=== PATIENT | female | born 1985 | race Caucasian/White ===

== ENCOUNTER 2024-11-09 09:51 | Outpatient (REF) | payer OTHER, SELFPAY ==
[2024-11-09 14:19] LABS: Hematocrit 36.5 % (37.0-47.0); Hemoglobin 12.5 g/dl (12.0-16.0); Mean Corpuscular HGB Conc 34.2 g/dl (31.0-35.0); Mean Corpuscular Hemoglobin 30.9 pg (27.0-33.0); Mean Corpuscular Volume 90.1 fL (80.0-98.0); NRBC Abs Auto 0.000 X10*3/uL (0.0-0.012); NRBC Pct Auto 0.0 /100WBC (0.0-0.2); Platelet Count 265 X10*3/uL (160-400); Red Blood Count 4.05 X10*6/uL (4.20-5.50); White Blood Count 6.2 X10*3/uL (4.8-10.8)
[2024-11-09 14:34] LABS: Appearance Urine Clear; Glucose Urine UA Negative (Negative); PH 6.5 (5.0-9.0); Specific Gravity - Urine 1.010 (1.005-1.025)
[2024-11-09 14:34] LABS: Hemoglobin A1C 101.5976 umol/L; Total Hemoglobin (HGBA1C) 3278.1361 umol/L
[2024-11-09 14:41] LABS: Alanine Aminotransferase 13 U/L (0-31); Albumin Level 4.5 g/dL (3.5-5.0); Alkaline Phosphatase 39 U/L (39-117); Anion Gap 14 (12-20); Aspartate Amino Transferase 19 U/L (5-31); Blood Urea Nitrogen 10 mg/dL (9-16); Calcium 9.2 mg/dL (8.4-10.2); Carbon Dioxide 26 mmol/L (22-29); Chloride 104 mmol/L (96-108); Cholesterol 184 mg/dL (<200); Estimated Glomerular Filt Rate > 60; HDL Cholesterol 52 mg/dL (>40); Potassium 3.8 mmol/L (3.3-5.1); Sodium 140 mmol/L (135-145); Total Protein 7.1 g/dL (6.5-8.0); Triglycerides 84 mg/dL (<150)
[2024-11-09 15:15] LABS: Folate 11.9 ng/mL (> or = 4.0); Vitamin B12 291 pg/mL (200-900)
== END 2024-11-09 09:52 | disposition home or self-care (01) ==
LOC: HO.WFDLDS 09:51
PROVIDERS: PCP Nurse Practitioner Family; Visit Provider Nurse Practitioner Family
DX: Z00.00 Encounter for general adult medical examination without abnormal findings (principal); Z13.6 Encounter for screening for cardiovascular disorders; R30.0 Dysuria; F41.1 Generalized anxiety disorder; F33.0 Major depressive disorder, recurrent, mild; E55.9 Vitamin D deficiency, unspecified; K21.9 Gastro-esophageal reflux disease without esophagitis; K59.01 Slow transit constipation; R51.9 Headache, unspecified; G89.29 Other chronic pain; Z86.2 Personal history of diseases of the blood and blood-forming organs and certain disorders involving the immune mechanism; Z92.89 Personal history of other medical treatment; R10.2 Pelvic and perineal pain; Z84.89 Family history of other specified conditions; Z80.8 Family history of malignant neoplasm of other organs or systems; Z76.89 Persons encountering health services in other specified circumstances
CPT/HCPCS: 36415; 80053; 80061; 81003; 82043; 82306; 82570; 82607; 82746; 83036; 84443; 85027; 96127; 99202

== ENCOUNTER 2024-11-09 09:51 | Outpatient (AMB) | payer OTHER, SELFPAY ==
--- NOTE | 2024-11-09 10:00 | A.OFFPC_ITS ---
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: No Allergies amoxicillin Allergy (Severe, Verified 11/09/24 10:59) Hives clindamycin Allergy (Severe, Verified 11/09/24 10:59) Hives sulfamethoxazole (From Bactrim) Allergy (Severe, Verified 11/09/24 10:59) Hives trimethoprim (From Bactrim) Allergy (Severe, Verified 11/09/24 10:59) Hives Medication List - Last Reconciled 11/09/24 by Yue Gupta, [facility]- citalopram 40 mg PO DAILY levonorgestrel-ethinyl estrad 0.1-20 mg-mcg (Vienva) 1 tab PO DAILY Tobacco use date assessed: 11/09/24 Dental Screening Dental Screen Date: 11/09/24 Did you have a dental visit in the last 12 months?: Yes Did you have a dental problem in the last 6 months where you did not have access to dental care?: No Was dental information given to patient?: Patient has dentist HPI HPI Comments History of Present Illness Details 39 y/o f with MADHU, MDD, hx of CTS, heada ches, insomnia , GERD, constipation, fhx brain tumor and skin ca, Vit D def, anemia, s/p laparoscopy 2010 Fhx: Brother with brain tumor alive age 32 ; Dad and Mom and HLD and HTN, Skin ca in Mom Social: , 2 children Health Maintenance: Pap 2022 Tdap 2024 Mammo - first one ordered today Health Maintenance: Optho - glasses 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 Likely cause is IUD perf into uterus Frequent urination; chronic, controlled w/ OCP. Offered and declined Uro. GERD: diet controlled Constipation: caused by celexa; manageable at this time Headache: not currently bothersome Insomnia no longer an issue CTS bilat: sx cont; did OT. Cont these exercises at home. fhx skin ca in Mom and Grandma (maternal) refer for Skin screen at [facility] Derm Fhx brain tumor in bro - shes had neg. brain imaging in the past Ok for baseline labs today. Review of Systems - Psychiatric: Reports anxiety, denies c urrent depression. - Neurological: Denies current headaches or insomnia. - Musculoskeletal: Reports history of ca rpal tunnel syndrome. - Gastrointestinal: Reports GERD control led by dietary measures; reports c onstipation. - Genitourinary: Reports urinary urgency and frequency post-. - Gynecological: Reports possible endome triosis, managed with contraception. - Dermatological: Family history of azeb noma. - Hematological: History of anemia durin g . Physical Exam General: Well developed, well nourished, in no acute distress. Appears stated age. Head: Normocephalic, atraumatic. Eyes: Pupils are equal, round and reactive to light and accommodation. Conjunctivae are clear. Vision grossly normal. Ears: TMs clear AU, EACS WNL Nose: Patent, without discharge. Neck: Supple, no adenopathy or thyromegaly. Breast: Edu on SBE Lungs: Clear to auscultation bilaterally. No rales, rhonchi or wheeze noted. Good air flow in all isaac. Heart: Regular rate and rhythm. No murmurs, click, rubs or gallops are noted. Abdomen: Bowel sounds present in all quadrants. The abdomen is soft, nontender, with no masses or organomegaly noted. No hernias are noted. : Deferred. 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 Extremities: No clubbing, cyanosis nor edema is noted. Neurologic: Gait and station normal. Cranial Nerves 2-12 intact. Motor strength grossly symmetrical and intact. No sensory loss. Balance normal. Skin: No rashes, ulcers, or lesions noted. Turgor is good. Skin color is good. Hair and nails are without abnormalities. Psych: Normal eye contact, affect and mood appropriate, and normal interactions. Patient is alert and appropriate to context. Results - Labs: Ordered & pending Discussion Notes During the visit, the patient and I discussed her history of anxiety exacerbated by her recent discontinuation of citalopram. I recommended restarting Citalopram 40 mg, beginning with half the dose at 20 mg daily. If ineffective, the patient can resume the full dose. Pelvic pain and the strategy of using control were reviewed, with the potential benefit discussed for menstrual regulation. No urologist consult was done for post- urinary symptoms, which currently remain manageable. I addressed health screenings such as mammogram, skin screening, and referral to BENEFITS COUNSELOR for women's health maintenance. Follow-up instructions included 3-month reassessment for the citalopram dosage and routine annual physicals. All medication interactions and side effects for citalopram were explained, including the potential for transient gastrointestinal upset or headaches. Patient was given time to ask questions. All questions were answered to their satisfaction. Assessment and Plan 1. Anxiety Disorder - Restart Citalopram 40 mg as 20 mg init ially. 2. Pelvic Pain - Continue control. 3. Carpal Tunnel Syndrome bilat - Continue physical therapy exercises. 4. Gastroesophageal Reflux Disease (GERD ) - Diet management continues. 5. Constipation - Manage with dietary changes. 6. Health Maintenance - Schedule mammogram and skin screening. - Complete lab work for vitamin D and th yroid. Patient Instructions - Begin taking Citalopram 20 mg daily, a nd consult if symptoms persist. - Maintain current diet to control GERD and constipation. - Expect a phone call to schedule mammog patricia and dermatology visits. - Follow-up in 12 weeks Celexa restart for MADHU, sooner PRN Consent Patient was informed and verbally consented to the use of an ambient scribe for clinic note documentation during this visit. An additional 30 minutes was spent addressing the problem(s) noted at todays visit. This includes time spent before the visit reviewing the chart, time spent during the visit, and time spent after the visit on documentation reviewing laboratory results, diagnostic imaging, medications, performing a medically necessary evaluation, counseling on diagnoses, care coordination, ordering appropriate tests, ordering appropriate medications, review of tests performed by other providers, reporting test results with the patient, communication with other healthcare providers. [facility] Medical History (Updated 11/09/24 @ 11:12 by Yue Gupta, MIGUEL-) Anxiety and depression Carpal tunnel syndrome Endometriosis Frequent urination Headache Pelvic pain Surgical History S/P laparoscopic procedure (~2010) Family History (Updated 11/09/24 @ 10:38 by Maria Teresa Zacarias MA) Maternal Aunt No problems noted. 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 1. Little interest or pleasure in doing things: several days 2. Feeling down, depressed, or hopeless: several days 3. Trouble falling or staying asleep, or sleeping too much: not at all 4. Feeling tired or having little energy: not at all 5. Poor appetite or overeating: not at all 6. Feeling bad about yourself - or that you are a failure or have let yourself or your family down: several days 7. Trouble concentrating on things, such as reading the newspaper or watching television: not at all 8. Moving or speaking so slowly that other people could have noticed. Or the opposite - being so fidgety or restless that you have been moving around a lot more than usual: not at all 9. Thoughts that you would be better off or of hurting yourself in some way: not at all Total score: 3 Depression Screening Interpretation: Negative Depression Screening Done: Yes 68308 - PHQ-9 Billing: Yes Source: Developed by Drs. Karl Pierson, Sarah Beth Johnson, Maykel Berumen and colleagues, with an educational yobany from [employer]. Thrive Questionnaire Date Thrive assessed: 11/09/24 I am a: Patient What is your living situation today?: I have a steady place to live Within the past 12 months, did the food you bought not last and you didn't have the money to get more?: Never true Within the past 12 months, did you worry whether your food would run out before you got money to buy more?: Never true Do you have trouble paying for medicines?: I choose not to answer this question Do you have trouble getting transportation to medical appointments?: No Do you have trouble paying your heating and electricity bill?: No Do you have trouble taking care of your child, family member or friend?: No Do you have trouble with day-to-day activities such as bathing, preparing meals, shopping, managing finances, etc.?: No Are you currently unemployed and looking for a job?: No Are you interested in more education?: No Please select the resources that you would like help with: None Currently or been in a relationship where the following occur: No concerns reported THRIVE Score: 0 AUDIT C Alcohol Use Questionnaire (AUDIT-C) 1. How often do you have a drink containing alcohol?: Monthly or less 2. How many drinks containing alcohol do you have on a typical day when you are drinking?: 3 or 4 3. How often do you have six or more drinks on one occasion?: Never Total Score: 2 Score Reviewed/Action Taken: Yes MADHU-7 AMB Questionnaire MADHU-7 Date MADHU - 7 assessed: 11/09/24 Feeling nervous, anxious, or on edge: 3 = Nearly every day Not being able to stop or control worryin = More than half the days Worrying too much about different things: 2 = More than half the days Trouble relaxin = Not at all Being so restless that it is hard to sit still: 0 = Not at all Becoming easily annoyed or irritable: 0 = Not at all Feeling afraid as if something awful might happen: 0 = Not at all Total MADHU-7 score (0-4 normal; 5-9 mild; 10-14 moderate; 15-21 severe): 7 Source: Developed by Drs. Karl Pierson, Sarah Beth Johnson, Maykel Berumen and colleagues, with an educational yobany from [employer]. MADHU-7 Assessment Billing MADHU-7 Assessment Tool: MADHU-7 Assessment 43109 Physical exam (Primary Care) Vital Signs: Last Vital Signs Temp 97.5 F 11/09/24 10:32 Pulse 77 11/09/24 10:32 Resp 12 11/09/24 10:32 BP 118/66 11/09/24 10:32 Pulse Ox 99 11/09/24 10:32 Oxygen Delivery Method Room Air 11/09/24 10:32 BMI result Body Mass Index 22.5 Tobacco/Smoking Status: Tobacco use Status Tobacco use date assessed 11/09/24 11/09/24 10:02 Patient Tobacco Use Status Never used Tobacco 11/09/24 10:02 e-Cigarette/Vaping Use Never Used 11/09/24 10:02 PHQ-9: PHQ-9 Score PHQ-9: Total score 3 11/09/24 10:02 Depression Screening Interpretation: Negative Thrive Assessment: Date of Thrive Assessment Date Thrive assessed 11/09/24 11/09/24 10:02 Currently or been in a relationship where the following occur: No concerns reported Coding Level of Care Code New Pt Level 4 (89405) New Pt Prev Care 40-64y(90623) Diagnoses Encounter to establish care with new provider Z76.89 MADHU (generalized anxiety disorder) F41.1 Mild episode of recurrent major depressive disorder F33.0 Major depression episode severity: mild Vitamin D deficiency E55.9 Gastroesophageal reflux disease without esophagitis K21.9 Esophagitis presence: without esophagitis Slow transit constipation K59.01 Constipation type: slow transit constipation History of anemia Z86.2 Chronic nonintractable headache, unspecified headache type R51.9; G89.29 Headache type: unspecified Intractability: not intractable History of Papanicolaou smear of cervix Z92.89 Pelvic pain R10.2 Oral contraceptive use Z30.41 Family history of brain tumor Z84.89 Family history of skin cancer Z80.8 Skin cancer screening Z12.83 Laboratory exam ordered as part of routine general medical examination Z00.00 Encounter for general adult medical examination without abnormal findings Z00.00 Additional Codes MADHU-7 Assessment Billing - MADHU-7 Assessment Tool: MADHU-7 Assessment 51316 ([id number]) PHQ-9 - 62828 - PHQ-9 Billing: Yes ([id number]) Assessment & Plan Assessment & Plan (1) Encounter to establish care with new provider: Code(s): Z76.89 - Persons encountering health services in other specified circumstances (2) MADHU (generalized anxiety disorder): Code(s): F41.1 - Generalized anxiety disorder Category: Medical (3) MDD (major depressive disorder), recurrent episode: Code(s): F33.9 - Major depressive disorder, recurrent, unspecified Category: Medical Qualifiers: Major depression episode severity: mild Qualified Code(s): F33.0 - Major depressive disorder, recurrent, mild (4) Vitamin D deficiency: Code(s): E55.9 - Vitamin D deficiency, unspecified Category: Medical (5) GERD (gastroesophageal reflux disease): Code(s): K21.9 - Gastro-esophageal reflux disease without esophagitis Category: Medical Qualifiers: Esophagitis presence: without esophagitis Qualified Code(s): K21.9 - Gastro-esophageal reflux disease without esophagitis (6) Constipation: Code(s): K59.00 - Constipation, unspecified Category: Medical Qualifiers: Constipation type: slow transit constipation Qualified Code(s): K59.01 - Slow transit constipation (7) History of anemia: Code(s): Z86.2 - Personal history of diseases of the blood and blood-forming organs and certain disorders involving the immune mechanism Category: Medical (8) Chronic headaches: Comment: Imaging of head done in the past; need records; told nothing to worry about Code(s): R51.9 - Headache, unspecified; G89.29 - Other chronic pain Category: Medical Qualifiers: Headache type: unspecified Intractability: not intractable Qualified Code(s): R51.9 - Headache, unspecified; G89.29 - Other chronic pain (9) History of Papanicolaou smear of cervix: Onset Date: ~2022 Code(s): Z92.89 - Personal history of other medical treatment Category: Medical (10) Pelvic pain: Code(s): R10.2 - Pelvic and perineal pain Category: Medical (11) Oral contraceptive use: Code(s): Z30.41 - Encounter for surveillance of contraceptive pills Category: Social Hx (12) Family history of brain tumor: Comment: Brother, dx in childhood; he is still alive; Code(s): Z84.89 - Family history of other specified conditions Category: Medical (13) Family history of skin cancer: Comment: MGM w/ melanoma Mom w/ basal cell Code(s): Z80.8 - Family history of malignant neoplasm of other organs or systems Category: Medical (14) Skin cancer screening: Code(s): Z12.83 - Encounter for screening for malignant neoplasm of skin Category: Medical (15) Laboratory exam ordered as part of routine general medical examination: Code(s): Z00.00 - Encounter for general adult medical examination without abnormal findings Category: Medical (16) Encounter for general adult medical examination without abnormal findings: Onset Date: ~11/09/24 Code(s): Z00.00 - Encounter for general adult medical examination without abnormal findings Category: Medical Plan . Orders: Orders MM tomosynthesis screening BI Today Z12.31 - Encounter for screening mammogram for malignant neoplasm of breast Complete Blood Count no Diff Today Z00.00 - Encounter for general adult medical examination without abnormal findings Hemoglobin A1c Today Z00.00 - Encounter for general adult medical examination without abnormal findings Lipid Panel Today Z00.00 - Encounter for general adult medical examination without abnormal findings UA CC w/rflx Micro + Cult Today R30.0 - Dysuria, Z00.00 - Encounter for general adult medical examination without abnormal findings Comprehensive Met. Panel Today Z00.00 - Encounter for general adult medical examination without abnormal findings Microalbumin, Random (w Creat) Today Z00.00 - Encounter for general adult medical examination without abnormal findings TSH reflex Free T4 Today Z00.00 - Encounter for general adult medical examination without abnormal findings Vitamin B12 and Folate Today Z00.00 - Encounter for general adult medical examination without abnormal findings Vitamin D 25-OH Total Today Z00.00 - Encounter for general adult medical examination without abnormal findings Referrals BENEFITS COUNSELOR Referral R10.2 - Pelvic and perineal pain, Z12.4 - Encounter for screening for malignant neoplasm of cervix, Z30.41 - Encounter for surveillance of contraceptive pills, Z92.89 - Personal history of other medical treatment Dermatology Referral Z12.83 - Encounter for screening for malignant neoplasm of skin, Z80.8 - Family history of malignant neoplasm of other organs or systems Medications: New citalopram 40 mg PO DAILY 90 tabs 2RF Patient Instructions: Walk-In Care (Urgent Care): We Make it Easy Walk-in for urgent medical issues such as: ? Seasonal Allergies ? Insect Bites ? Cough ? Diarrhea ? Acute Asthma Attacks ? Back, Knee or Joint Pain ? Ear Infection ? Fever without a Rash ? Headaches ? Nausea ? University Eye, Rash or Skin Irritation ? Sore Throat ? Sports Physicals ? Vomiting Most insurances are accepted. Patients do not need to be part of the [facility] to seek care at the walk-in clinic. Locations [address] [place] [address] ? [phone] [facility] Walk-In Care in [place] provides services to ages 18 and over. Open Thursday-Thursday: 8 a.m. to 5 p.m. and Thursday: 9 a.m. to 3 p.m.* *Hours may vary due to staffing availability. To confirm Walk-In Care hours in [place], please call [phone]. [address] [place] [address] ? [phone] [facility] Walk-In Care in [place] provides services to ages 12 and over. Open Thursday-Thursday: 8 a.m. to 5 p.m. Hours may vary due to staffing availability. To confirm Walk-In Care hours in [place], please call [phone]. LABORATORY SERVICES: [facility] ? Primary Location [address] [place] [address] Thursday through Thursday 6:00 AM ? 5:00 PM Thursday 7:00 AM ? 11:00 AM* [phone] The [facility] is centrally located near the front entrance of the [facility] for easy outpatient access. Convenient parking is provided for outpatients. *Hours may vary due to staffing availability. To confirm Laboratory hours for any location, please call [phone]. Offsite Location For your convenience, we offer offsite laboratory draw stations at the following locations: [address] [place] [address] ? [facility] [address], [address] Thursday through Thursday 7:30 AM ? 1:00 PM* [phone] *Hours may vary due to staffing availability. To confirm Laboratory hours for any location, please call [phone]. [place] ? [address] Thursday through Thursday 6:00 AM ? 3:30 PM* Thursday 6:30 AM ? 3 PM* [phone] *Hours may vary due to staffing availability. To confirm Laboratory hours for any location, please call [phone]. [address] [facility] Thursday through Thursday 7:30 AM ? 4:00 PM* [phone] *Hours may vary due to staffing availability. To confirm Laboratory hours for any location, please call [phone]. [address] [facility] Thursday through 9:00 AM ? 4:00 PM* *Hours may vary due to staffing availability. To confirm Laboratory hours for any location, please call [phone]. Appointments are not necessary. Walk-ins are welcome. Like all the departments throughout the [facility], our Lab undergoes frequent reviews to ensure the quality and accuracy of test results, and our staff takes special pride in its status as a nationally accredited facility. Patient Portal: ONE PATIENT. ONE RECORD. BETTER CARE. [facility] has a fully integrated, cutting- edge mobile electronic health information system that has revolutionized the way we care for our patients and manage our organization. This system improves communication and coordination enabling us to provide safe, higher-quality care, and an overall positive experience for staff and patients. Our first priority, as always, is to deliver the highest quality care possible. The system is running in the background supporting that priority. This portal is for all [facility] and [facility] services and practices. If you are experiencing any technical difficulties with enrolling or logging into the Patient Portal please complete the [facility] Patient Portal Technical Support Form. [facility] and [facility] now offers a new secure on-line interactive tool for patients to review their health information ? ?Patient Portal. This interactive web portal will enable patients and their families to take an active role in their care by providing easy, secure access to their health information via the internet. The Patient Portal provides patients with instant access to their health information, including laboratory results, medications, allergies, demographic information, visit history, and more. In addition to managing their own care, parents and health care proxies with authorized consent will appreciate the ability to access the records of those individuals for whom they provide care. Please note: if you wish to gain access (Proxy) to another patient?s portal, you will be required to come to the Medical Records Department in person at [facility]. Both the patient giving proxy access and the proxy will need to provide photo identification and complete the appropriate authorization. The Patient Portal also allows track their appointments online. The [facility] Patient Portal also saves patients time by allowing them to submit updates to their demographic and contact information prior to their visits. Portal email notifications will also alert patients to any new activity on their portal, such as test results and new appointments. In order to initially enroll in the [facility] Patient Portal, you will need to enter some required information including the following: * your [facility] Medical Record number * your personal home email address * name * date of Please note: In order to enroll in the [facility] Patient Portal, we need to have your email address on file in your electronic medical record. ?The email address needs to be specific for one person (yourself) in order for your Portal enrollment to be successful. ?You can update your email address in person with our Registration staff when you are registering for a hospital visit. ?Otherwise, you will need to come to the Health Information Management (Medical Records) Department at [facility]. ?We are open from Thursday ? Thursday from 7:30 a.m. ? 4:30 p.m. ?You will be required to present a photo id. Once you have successfully enrolled in the Patient Portal, you will receive a one-time user id and password for the Portal, sent to your email address. ?This will allow you to log into the Patient Portal within 99 hrs and reset your own logon id and password, and define personal security questions. ?Once your permanent login and password have been set, you can log into the [facility] Patient Portal at any time via the blue button above or from the Portal Logon button on any page of the [facility] website. [facility] and [facility] encourage all of our patients to enroll in Patient Portal as it presents a valuable opportunity for patients and their families to actively participate in their care and stay healthy Welcome to [facility]. ?We look forward to working with you. Health screenings for women You should visit your health care provider from time to time, even if you are healthy. The purpose of these visits is to: Screen for medical issues Assess your risk for future medical problems Encourage a healthy lifestyle Update vaccinations and other preventive care services Help you get to know your provider in case of an illness Information Even if you feel fine, you should still see your provider for regular checkups. These visits can help you avoid problems in the future. For example, the only way to find out if you have high blood pressure is to have it checked regularly. High blood sugar and high cholesterol levels also may not have any symptoms in the early stages. A simple blood test can check for these conditions. There are specific times when you should see your provider or receive specific health screenings. The [place] Preventive Services Task Force publishes a list of recommended screenings. Below are screening guidelines for women ages 18 to 39. BLOOD PRESSURE SCREENING Your blood pressure should be checked at least once every 3 to 5 years if: Your blood pressure is in the normal range (top number less than 120 mm Hg and bottom number less than 80 mm Hg) You don't have risk factors for high blood pressure Ask your provider if you need your blood pressure checked more often if: The top number is 120 to 129 mm Hg or the bottom number is 70 to 79 mm Hg You have diabetes, heart disease, kidney problems, are overweight, or have certain other health conditions You have a first-degree relative with high blood pressure You are Black You had high blood pressure during a If the top number is 130 mm Hg or greater or the bottom number is 80 mm Hg or greater, this is considered stage 1 hypertension. Schedule an appointment with your provider to learn how you can reduce your blood pressure. Watch for blood pressure screenings in your area. Ask your provider if you can stop in to have your blood pressure checked. BREAST CANCER SCREENING Experts do not agree about the benefits of breast self-exams in finding breast cancer or saving lives. Talk to your provider about what is best for you. A screening mammogram is not recommended for most women under age 40. Your provider may discuss and recommend mammograms, MRI scans, or ultrasounds if you have an increased risk for breast cancer, such as: A mother or sister who had breast cancer at a young age (most often starting screening earlier than the age the close relative was diagnosed) You carry a high-risk genetic marker CERVICAL CANCER SCREENING Cervical cancer screening should start at age 21 years unless your provider advises otherwise. After the first test: Women ages 21 through 29 should have a Pap test every 3 years. Exoprts do not agree on whether HPV testing is recommended for this age group. Women ages 30 through 65 should be screened with either a Pap test every 3 years or the HPV test every 5 years or both tests every 5 years (called cotesting ). Women who have been treated for precancer (cervical dysplasia) should continue to have Pap tests for 20 years after treatment or until age 65, whichever is longer. If you have had your uterus and cervix removed (total hysterectomy), and you have not been diagnosed with cervical cancer or precancer (high grade cervical neoplasia), you do not need cervical cancer screening. CHOLESTEROL SCREENING Cholesterol screening should begin at: Age 45 for women with no known risk factors for coronary heart disease Age 20 for women with known risk factors for coronary heart disease Repeat cholesterol screening should take place: Every 5 years for women with normal cholesterol levels More often if changes occur in lifestyle (including weight gain and diet) More often if you have diabetes, heart disease, kidney problems, or certain other conditions DIABETES SCREENING You should be screened for diabetes starting at age 35 and then repeated every 3 years if you have no risk factors for diabetes. Screening may need to start earlier and be repeated more often if you have other risk factors for diabetes, such as: You have a first degree relative with diabetes. You are overweight or have obesity. You have high blood pressure, prediabetes, or a history of heart disease. Screening for diabetes should be done if you are planning to become and you are overweight and have other risk factors such as high blood pressure. DENTAL EXAM Go to the dentist once or twice every year for an exam and cleaning. Your dentist will evaluate if you need more frequent visits. EYE EXAM Have an eye exam every 5 to 10 years before age 40. If you have vision problems, have an eye exam every 2 years or more often if recommended by your provider. You should have an eye exam that includes an examination of your retina (back of your eye) at least every year if you have diabetes. IMMUNIZATIONS Commonly needed vaccines include: Flu shot: get one every year. COVID-19 vaccine: ask your provider what is best for you. Tetanus-diphtheria and acellular pertussis (Tdap) vaccine: have one at or after age 19 as one of your tetanus-diphtheria vaccines if you did not receive it as an adolescent. Tetanus-diphtheria: have a booster (or Tdap) every 10 years. Varicella vaccine: receive 2 doses if you never had chickenpox or the varicella vaccine. Hepatitis B vaccine: receive 2, 3, or 4 doses, depending on your exact circumstances. Measles, mumps, and rubella (MMR) vaccine: receive 1 to 2 doses if you are not already immune to MMR. Your provider can tell you if you are immune. Ask your provider about the human papillomavirus (HPV) vaccine if: You have not received the HPV vaccine in the past You have not completed the full vaccine series (you should catch up on this shot) Ask your provider if you should receive other immunizations if you have certain health problems that increase your risk for some diseases such as pneumonia. INFECTIOUS DISEASE SCREENING Women who are sexually active should be screened for chlamydia and gonorrhea up until age 25. Women 25 years and older should be screened for chlamydia and gonorrhea if at high risk. Screening for hepatitis C: All adults ages 18 to 79 should get a one-time test for hepatitis C. people should be screened at every . Screening for human immunodeficiency virus (HIV): All people ages 15 to 65 should get a one-time test for HIV. Depending on your lifestyle and medical history, you may also need to be screened for infections such as syphilis and HIV, as well as other infections. PHYSICAL EXAM All adults should visit their provider from time to time, even if they are healthy. The purpose of these visits is to: Screen for disease Assess your risk of future medical problems Encourage a healthy lifestyle Update your vaccinations and other preventive care services Maintain a relationship with a provider in case of an illness Your height, weight, and BMI should be checked at every exam. During your exam, your provider may ask you about: Depression and anxiety Diet and exercise Alcohol and tobacco use Safety issues, such as using seat belts, smoke detectors, and intimate partner violence Your medicines and risk for interactions SKIN SELF-EXAM Your provider may check your skin for signs of skin cancer, especially if you're at high risk, such as if you: Have had skin cancer before Have close relatives with skin cancer Have a weakened immune system OTHER SCREENING Talk with your provider about colon cancer screening if you have a strong family history of colon cancer or polyps, or if you have had inflammatory bowel disease or polyps yourself. Routine bone density screening of women under 40 is not recommended.
[2024-11-09 10:32] VITALS: BP 118/66; PULSE 77; RESP 12; TEMP 36.4; O2SAT 99; BMI 22.5
== END 2024-11-09 11:08 | disposition home or self-care (01) ==
LOC: HO.HMCFM 09:52
PROVIDERS: PCP Nurse Practitioner Family; Visit Provider Nurse Practitioner Family
DX: Z00.00 Encounter for general adult medical examination without abnormal findings (principal); K21.9 Gastro-esophageal reflux disease without esophagitis; E55.9 Vitamin D deficiency, unspecified; Z76.89 Persons encountering health services in other specified circumstances; F41.1 Generalized anxiety disorder; F33.0 Major depressive disorder, recurrent, mild; K59.01 Slow transit constipation; Z86.2 Personal history of diseases of the blood and blood-forming organs and certain disorders involving the immune mechanism; R51.9 Headache, unspecified; G89.29 Other chronic pain; Z92.89 Personal history of other medical treatment; R10.2 Pelvic and perineal pain

== ENCOUNTER 2024-12-24 10:16 | Outpatient (REF) | payer OTHER, SELFPAY | END 2024-12-24 10:17 | disposition home or self-care (01) | LOC: HO.MAMMO 10:16 | PROVIDERS: PCP Nurse Practitioner Family; Visit Provider Nurse Practitioner Family | DX: Z12.31 Encounter for screening mammogram for malignant neoplasm of breast (principal) | CPT/HCPCS: 77063; 77067 ==

== ENCOUNTER → 2024-12-24 10:30 | Outpatient (BNV) | payer OTHER, SELFPAY | PROVIDERS: PCP Nurse Practitioner Family; Visit Provider Internal Medicine | DX: Z12.31 Encounter for screening mammogram for malignant neoplasm of breast (principal) | CPT/HCPCS: 77063; 77067 ==

== ENCOUNTER 2025-01-25 08:17 | Outpatient (REF) | payer OTHER, SELFPAY ==
--- NOTE | ~2025-01-25 | MM_ITS ---
EXAMINATION: MM DIAGNOSTIC DIGITAL BREAST TOMOSYNTHESIS, LEFT CLINICAL INFORMATION: Call back from screening for asymmetry in the superior left breast anterior depth on MLO view. COMPARISON: Mammography: Prior on PACS. TECHNIQUE: Digital breast tomosynthesis is performed in both the craniocaudal and mediolateral oblique views along with computer-aided detection (CAD). Synthesized 2D images are generated from the tomosynthesis. FINDINGS: There are scattered areas of fibroglandular density. Previously seen asymmetry in the superior left breast on MLO view anterior to middle depth does not persist on additional imaging projections and likely represented overlapping breast tissue. There are no significant masses, abnormal calcifications, or other abnormalities. MM/MM tomosynthesis added views L IMPRESSION: There are no significant changes from prior study. ASSESSMENT: BI-RADS Category 1: Negative RECOMMENDATION: 1 year F/U Results were provided to the patient at time of visit by the technologist. This patient's information was entered into a reminder system with a target due date for their next mammogram. Electronically signed by: Carlota Gonzales DO 01/25/2025 08:42 AM EDT
== END 2025-01-25 08:18 | disposition home or self-care (01) ==
LOC: HO.MAMMO 08:17
PROVIDERS: PCP Nurse Practitioner Family; Visit Provider Nurse Practitioner Family
DX: N64.89 Other specified disorders of breast (principal)
CPT/HCPCS: 77061; 77065

== ENCOUNTER → 2025-01-25 08:30 | Outpatient (BNV) | payer OTHER, SELFPAY | PROVIDERS: PCP Nurse Practitioner Family; Visit Provider Internal Medicine | DX: R92.8 Other abnormal and inconclusive findings on diagnostic imaging of breast (principal) | CPT/HCPCS: 77061; 77065 ==

== ENCOUNTER 2025-02-14 08:32 | Outpatient (AMB) | payer OTHER, SELFPAY ==
--- NOTE | 2025-02-14 08:38 | A.OFFPC_ITS ---
Vital Signs 02/14/25 08:41 Height 5 ft Weight 118 lb 4 oz BMI 23.1 BP 118/68 Blood Pressure Location Rt brachial Position Sitting Respiration 12 Pulse 68 Pulse Source Pulse Oximeter Temp 97.5 F Temp Source Oral Pulse Oximetry (%) 98 Oxygen Delivery Method Room Air Intake Visit Reasons: 3 months FU celexa Intake Note: 3 Months follow up on celexa. Development Disability Specialist Required: No Allergies amoxicillin Allergy (Severe, Verified 02/14/25 09:02) Hives clindamycin Allergy (Severe, Verified 02/14/25 09:02) Hives sulfamethoxazole (From Bactrim) Allergy (Severe, Verified 02/14/25 09:02) Hives trimethoprim (From Bactrim) Allergy (Severe, Verified 02/14/25 09:02) Hives Medication List - Last Reconciled 02/14/25 by MIGUEL Figueroa- citalopram 40 mg PO DAILY levonorgestrel-ethinyl estrad 0.1-20 mg-mcg (Vienva) 1 tab PO DAILY Tobacco use date assessed: 02/14/25 Dental Screening Dental Screen Date: 02/14/25 Did you have a dental visit in the last 12 months?: Yes Did you have a dental problem in the last 6 months where you did not have access to dental care?: No Was dental information given to patient?: Patient has dentist HPI HPI Comments History of Present Illness Details 39 y/o f with MADHU, MDD, hx of CTS, heada ches, insomnia , GERD, constip ation, fhx brain tumor and skin ca, Vit D def, anemia, s/p laparoscopy 2010 Fhx: Brother with brain tumor alive age 32 ; Dad and Mom and HLD and HTN, Skin ca in Mom Social: , 2 children Health Maintenance: Pap 2022 Tdap 2024 Mammo 11/2024 incomplete additional imaging needed 12/2024 WNL Flu 02/14/25 Health Maintenance: Optho - glasses 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 Anxiety and Depression: - The patient recently restarted citalop patricia 40 mg for anxiety and depressive symptoms. - She reports her mood has significantly improved since restarting the medication. - Prior to restarting, she rated her sym ptoms as a 7 out of 10, and they are now a 4 out of 10. - She denies any side effects such as st omach ache or headache. - There was a previous interruption in t reatment due to insurance issues. - The patient has previously declined co unseling and continues to do so. Health Maintenance: - A recent mammogram was normal after an initial incomplete study required repeat imaging. - Lab results were sent via the patient portal, and she has no questions about them. - The patient has a skin screening sched uled for later this week. - Would like flu shot today Past Medical History - Anxiety - Depression - Upper respiratory infection, resolved, occurred approximately 1.5 months ago. Review of Systems - Psychiatric: Reports significant impro vement in anxiety and depressive symptoms. - Gastrointestinal: Denies stomach ache. - Neurological: Denies headache. Physical Exam General: Well developed, well nourished, in no acute distress. Appears stated age. Head: Normocephalic, atraumatic. Eyes: Pupils are equal, round and reactive to light and accommodation. Conjunctivae are clear. Lungs: Clear to auscultation bilaterally. No rales, rhonchi or wheeze noted. Good air flow in all isaac. Heart: Regular rate and rhythm. No murmurs, click, rubs or gallops are noted. Psych: Mood and affect appropriate, significantly improved since restarting citalopram. Results - Labs: Recent lab results were reviewed by the patient on the portal; she reports no questions. - Imaging: A recent mammogram was normal after an initial incomplete study required repeat imaging. Medical Decision Making This 39-year-old female presents for a follow-up of anxiety and depression after recently restarting citalopram. She is currently on 40 mg daily and reports a significant improvement in her mood, with a self-rated symptom score reduction from 7/10 to 4/10 since restarting the medication a few weeks ago. She denies any adverse effects. Given the substantial symptomatic improvement of nearly 50% in a short period, the decision was made to continue the current dosage. While there is an option to escalate the dose, it seems prudent to observe if her symptoms will continue to improve on the current regimen. The plan is to maintain citalopram 40 mg daily and re-evaluate in approximately six weeks, with the patient understanding she can contact me via the portal to discuss an earlier dose increase if needed. The patient will also receive an influenza vaccine today. Plan 1. Anxiety And Depression - The patient reports significant improv ement in anxiety and depression symptoms, with a self-rated score decreasing from 7/10 to 4/10 since restarting citalopram 40 mg. - She denies any side effects from the m edication. - Plan is to continue citalopram 40 mg d aily. - The patient has declined counseling. - Follow-up is scheduled for six weeks t o re-evaluate symptoms, with the option to contact via the patient portal sooner if she feels a dose increase is necessary. 2. Health Maintenance - Influenza vaccine will be administered today. - Patient confirmed her recent mammogram results were normal. - [facility] Patient Instructions - Continue taking citalopram 40 mg once daily. - [facility] - [facility] for about six weeks from now. - If you feel your symptoms are getting worse or if you want to discuss increasing your medication sooner, please send a message through the online patient portal. - Keep your scheduled appointment for [facility] skin screening later this week. - Your prescription for citalopram has a 90-day supply, so you do not need a refill today. Consent Patient was informed and verbally consented to the use of an ambient scribe for clinic note documentation during this visit. [facility] Medical History (Updated 02/14/25 @ 09:11 by Yue Gupta [facility]) Anxiety and depression Carpal tunnel syndrome Endometriosis Frequent urination Headache Pelvic pain Surgical History S/P laparoscopic procedure (~2010) Family History (Updated 11/09/24 @ 10:38 by Maria Teresa Zacarias MA) Maternal Aunt No problems noted. 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 1. Little interest or pleasure in doing things: not at all 2. Feeling down, depressed, or hopeless: not at all 3. Trouble falling or staying asleep, or sleeping too much: not at all 4. Feeling tired or having little energy: not at all 5. Poor appetite or overeating: not at all 6. Feeling bad about yourself - or that you are a failure or have let yourself or your family down: not at all 7. Trouble concentrating on things, such as reading the newspaper or watching television: not at all 8. Moving or speaking so slowly that other people could have noticed. Or the opposite - being so fidgety or restless that you have been moving around a lot more than usual: not at all 9. Thoughts that you would be better off or of hurting yourself in some way: not at all Total score: 0 Depression Screening Interpretation: Negative Depression Screening Done: Yes 84618 - PHQ-9 Billing: Yes Source: Developed by Drs. Karl Pierson, Sarah Beth Johnson, Maykel Berumen and colleagues, with an educational yobany from [employer]. Thrive Questionnaire Date Thrive assessed: 02/14/25 I am a: Patient What is your living situation today?: I have a steady place to live Within the past 12 months, did the food you bought not last and you didn't have the money to get more?: Never true Within the past 12 months, did you worry whether your food would run out before you got money to buy more?: Never true Do you have trouble paying for medicines?: I choose not to answer this question Do you have trouble getting transportation to medical appointments?: No Do you have trouble paying your heating and electricity bill?: No Do you have trouble taking care of your child, family member or friend?: No Do you have trouble with day-to-day activities such as bathing, preparing meals, shopping, managing finances, etc.?: No Are you currently unemployed and looking for a job?: No Are you interested in more education?: No Please select the resources that you would like help with: None Currently or been in a relationship where the following occur: No concerns rep orted THRIVE Score: 0 MADHU-7 AMB Questionnaire MADHU-7 Date MADHU - 7 assessed: 02/14/25 Feeling nervous, anxious, or on edge: 0 = Not at all Not being able to stop or control worryin = Not at all Worrying too much about different things: 0 = Not at all Trouble relaxin = Not at all Being so restless that it is hard to sit still: 0 = Not at all Becoming easily annoyed or irritable: 0 = Not at all Feeling afraid as if something awful might happen: 0 = Not at all Total MADHU-7 score (0-4 normal; 5-9 mild; 10-14 moderate; 15-21 severe): 0 Source: Developed by Drs. Karl Pierson, Sarah Beth Johnson, Maykel Berumen and colleagues, with an educational yobany from [employer]. MADHU-7 Assessment Billing MADHU-7 Assessment Tool: MADHU-7 Assessment 14869 Physical exam (Primary Care) Vital Signs: Last Vital Signs Temp 97.5 F 02/14/25 08:41 Pulse 68 02/14/25 08:41 Resp 12 02/14/25 08:41 BP 118/68 02/14/25 08:41 Pulse Ox 98 02/14/25 08:41 Oxygen Delivery Method Room Air 02/14/25 08:41 BMI result Body Mass Index 23.1 Tobacco/Smoking Status: Tobacco use Status Tobacco use date assessed 02/14/25 02/14/25 08:43 Patient Tobacco Use Status Never used Tobacco 02/14/25 08:43 e-Cigarette/Vaping Use Never Used 02/14/25 08:43 PHQ-9: PHQ-9 Score PHQ-9: Total score 0 02/14/25 09:07 Depression Screening Interpretation: Negative Thrive Assessment: Date of Thrive Assessment Date Thrive assessed 02/14/25 02/14/25 08:43 Currently or been in a relationship where the following occur: No concerns reported Office Procedures Flu Questionnaire Does the patient have a severe egg allergy?: No Does the patient have severe life threatening allergies?: No Does the patient have a fever or illness today?: No Has the patient ever had Guillain-[place] Syndrome?: No Has the patient ever had any past reaction to a flu shot?: No Immunizations Fluarix [id number] (PF) 45 mcg (15 mcg x 3)/0.5 mL IM syringe Performing Provider: ABDOULAYE Figueroa Performing Location: [facility] Administered by: Maria Teresa Zacarias MA on 02/14/25 09:10 Dose Route Admin Location Dispensed Lot Number Expiration Date NDC Tester Wafer Substrate 0.5 mL IM Left Deltoid 0.5 mL [id number] 09/26/25 [id number] [employer] VIS Given Date VIS Provided VIS Publication Date 02/14/25 Single Vaccine 24 Eligibility Eligibility Date Funding Source Not [facility] Eligible 02/14/25 Private Coding Level of Care Code Est Pt Level 4 (06827) Complex EM visit Add On G2211 Diagnoses MADHU (generalized anxiety disorder) F41.1 Mild episode of recurrent major depressive disorder F33.0 Major depression episode severity: mild History of mammogram Z92.89 Family history of skin cancer Z80.8 Skin cancer screening Z12.83 Influenza vaccination administered at current visit Z23 Additional Codes MADHU-7 Assessment Billing - MADHU-7 Assessment Tool: MADHU-7 Assessment 55112 ([id number]) PHQ-9 - 81516 - PHQ-9 Billing: Yes ([id number]) Assessment & Plan Assessment & Plan (1) MADHU (generalized anxiety disorder): Code(s): F41.1 - Generalized anxiety disorder Category: Medical (2) MDD (major depressive disorder), recurrent episode: Code(s): F33.9 - Major depressive disorder, recurrent, unspecified Category: Medical Qualifiers: Major depression episode severity: mild Qualified Code(s): F33.0 - Major depressive disorder, recurrent, mild (3) History of mammogram: Onset Date: ~12/2024 Code(s): Z92.89 - Personal history of other medical treatment Category: Medical (4) Family history of skin cancer: Comment: MGM w/ melanoma Mom w/ basal cell Code(s): Z80.8 - Family history of malignant neoplasm of other organs or systems Category: Medical (5) Skin cancer screening: Onset Date: ~01/2025 Comment: [place] DERM Code(s): Z12.83 - Encounter for screening for malignant neoplasm of skin Category: Medical (6) Influenza vaccination administered at current visit: Onset Date: ~02/14/25 Code(s): Z23 - Encounter for immunization Category: Medical Plan . Orders: Orders Influenza [id number] Immunization Today Z23 - Encounter for immunization
[2025-02-14 08:41] VITALS: BP 118/68; PULSE 68; RESP 12; TEMP 36.4; O2SAT 98; BMI 23.1
== END 2025-02-14 09:11 | disposition home or self-care (01) ==
LOC: HO.HMCFM 08:32
PROVIDERS: PCP Nurse Practitioner Family; Visit Provider Nurse Practitioner Family
DX: F41.1 Generalized anxiety disorder (principal); F33.0 Major depressive disorder, recurrent, mild; Z92.89 Personal history of other medical treatment; Z80.8 Family history of malignant neoplasm of other organs or systems; Z12.83 Encounter for screening for malignant neoplasm of skin; Z23 Encounter for immunization

== ENCOUNTER → 2025-02-14 08:32 | Outpatient (BNVA) | payer OTHER, SELFPAY | PROVIDERS: PCP Nurse Practitioner Family; Visit Provider Nurse Practitioner Family | DX: F41.1 Generalized anxiety disorder (principal); F33.0 Major depressive disorder, recurrent, mild; Z92.89 Personal history of other medical treatment; Z80.8 Family history of malignant neoplasm of other organs or systems; Z23 Encounter for immunization | CPT/HCPCS: 90471; 90656; 96127; 99212 ==

== ENCOUNTER 2025-03-29 08:43 | Outpatient (AMB) | payer OTHER, SELFPAY ==
--- NOTE | 2025-03-29 08:47 | A.OFFPC_ITS ---
Vital Signs 03/29/25 08:51 Height 5 ft Weight 120 lb 6 oz BMI 23.5 BP 111/64 Blood Pressure Location Lt brachial Position Sitting Respiration 16 Pulse 68 Pulse Source Pulse Oximeter Temp 98.1 F Temp Source Oral Pulse Oximetry (%) 100 Oxygen Delivery Method Room Air Intake Visit Reasons: 6 weeks fu celexa (same dose) Intake Note: patient here for 6 wks follow up for celexa (same dose) [employer] Member Required: No Is last menstrual period known: Yes Last menstrual period: 03/18/25 Post menopausal: No Patient : No Allergies amoxicillin Allergy (Severe, Verified 03/29/25 08:55) Hives clindamycin Allergy (Severe, Verified 03/29/25 08:55) Hives sulfamethoxazole (From Bactrim) Allergy (Severe, Verified 03/29/25 08:55) Hives trimethoprim (From Bactrim) Allergy (Severe, Verified 03/29/25 08:55) Hives Medication List - Last Reconciled 03/29/25 by Yue Gupta, SINTERING PRESS OPERATOR- citalopram 40 mg PO DAILY levonorgestrel-ethinyl estrad 0.1-20 mg-mcg (Vienva) 1 tab PO DAILY Tobacco use date assessed: 03/29/25 Dental Screening Dental Screen Date: 03/29/25 Did you have a dental visit in the last 12 months?: Yes Did you have a dental problem in the last 6 months where you did not have access to dental care?: No Was dental information given to patient?: Patient has dentist HPI HPI Comments History of Present Illness Details 39 y/o f with MADHU, MDD, hx of CTS, heada ches, insomnia , GERD, constipation, fhx brain tumor and skin ca, Vit D def, anemia, s/p laparoscopy 2010 Fhx: Brother with brain tumor alive age 32 ; Dad and Mom and HLD and HTN, Skin ca in Mom Social: , 2 children Health Maintenance: Pap 2022 Tdap 2024 Mammo 11/2024 incomplete additional imaging needed 12/2024 WNL Flu 02/14/25 Health Maintenance: Optho - glasses MANAGED CARE ANALYST appt scheduled 04/2025 Derm had appt, next appt 1 year History of Present Illness The patient is a 39 year old female presenting for a follow-up visit for management of anxiety and depression. Anxiety and Depression: - The patient is currently taking citalo pram 40 mg for anxiety and depression. - She reports her mood has remained stab le at a self-rated 4/10 severity, which is an improvement from a previous 10, but has not improved further since her last visit. - The patient feels there is room for im provement in her mood. - The highest dose she has been on previ ously was 40 mg. Changes in menses: - The patient reports that her menstrual cycle has become irregular, which she suspects is due to perimenopause. - Her periods are occurring more frequen tly but are asbestos brake lining finisher in flow and not associated with pain. - She denies any chance of . - Has MANAGED CARE ANALYST visit 04/2025 Health Maintenance: - The patient had a recent dermatology c onsultation which revealed no issues, and she will continue with annual follow-ups. Past Medical History - Anxiety - Depression Review of Systems - Gynecological: Reports irregular, more frequent, and asbestos brake lining finisher menses. - Psychiatric: Reports stable but incomp letely improved mood with citalopram. - Constitutional: Reports adequate appet ite and sleep. - Pertinent Negatives: Denies suicidal i deation. Physical Exam General: Well developed, well nourished, in no acute distress. Appears stated age. Head: Normocephalic, atraumatic. Eyes: Pupils are equal, round and reactive to light and accommodation. Conjunctivae are clear. Vision grossly normal. Lungs: Clear to auscultation bilaterally. No rales, rhonchi or wheeze noted. Good air flow in all isaac. Heart: Regular rate and rhythm. No murmurs, click, rubs or gallops are noted. Psych: Mood and affect appropriate, though patient reports no improvement in mood, remaining at 4/10 on the mood scale. Medical Decision Making The patient is a 39-year-old female here for a follow-up on anxiety and depression. Her mood has plateaued on citalopram 40 mg, with persistent symptoms rated at 4/10 severity, indicating room for improvement. She has previously not been on a higher dose. After discussing options, including augmentation or increasing the current medication, she prefers to increase the dose of citalopram. The plan is to increase her citalopram to 50 mg daily, which will require her to take both a 40 mg and a 10 mg tablet. I have counseled her on potential insurance coverage issues with this dosing and advised her to contact the office via the portal if any problems arise at the pharmacy. We will follow up in 8-10 weeks to assess her response. She also reported new-onset irregular menses, which is likely related to perimenopause. She has an upcoming MANAGED CARE ANALYST appointment in April, and it is appropriate for her to discuss these symptoms with the specialist at that time. Plan 1. Anxiety And Depression - The patient's mood improvement on frankie lopram 40 mg has plateaued, with her current mood rated at 4/10. - The patient expressed a preference to increase the dose of her current medication. - Increase citalopram to 50 mg daily, to be taken as one 40 mg tablet and one 10 mg tablet. - The patient was counseled to contact t he office through the patient portal if there are any insurance issues with filling the new prescription. - A follow-up visit is scheduled in 8-10 weeks to assess the efficacy of the dose increase. 2. Changes in menses: - The patient reports new irregular mens es, which are more frequent but asbestos brake lining finisher, suspecting perimenopause. - She was advised to discuss these sympt oms with her background investigator at her upcoming appointment in April. - Will review the outcome of her MANAGED CARE ANALYST con sultation at her next follow-up appointment. 3. Health Maintenance - The patient will continue with annual dermatology evaluations; her recent visit found no issues. - The patient will proceed with her [facility] gynecology consultation in April. Patient Instructions - Your dose of citalopram will be increa sed to 50 mg per day. - To get this dose, you will need to lauren e one 40 mg tablet and one 10 mg tablet each day. - If there are any problems with your in surance paying for the medications, please send a message on the patient portal. - Continue with your plan to see the drum sander offbearer mine car repairer in April to discuss your irregular periods. - We will schedule a follow-up appointme nt in 8 to 10 weeks to check on how you are doing with the new medication dose. - If you have any thoughts of hurting yo urself, please seek care immediately. Consent Patient was informed and verbally consented to the use of an ambient scribe for clinic note documentation during this visit. [facility] Medical History (Updated 03/29/25 @ 09:[address] [facility]) Anxiety and depression Carpal tunnel syndrome Endometriosis Frequent urination Headache Pelvic pain Surgical History S/P laparoscopic procedure (~2010) Family History (Updated 11/09/24 @ 10:38 by Maria Teresa Zacarias MA) Maternal Aunt No problems noted. 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 Current occupational exposures/hazards: No Cognitive needs: No Hearing needs: No Vision needs: Yes (wear glasses) Female Reproductive History Menstrual Date of last menstrual period: 03/18/25 Questionnaire Thrive Questionnaire Date Thrive assessed: 11/02/24 I am a: Patient What is your living situation today?: I have a steady place to live Within the past 12 months, did the food you bought not last and you didn't have the money to get more?: Never true Within the past 12 months, did you worry whether your food would run out before you got money to buy more?: Never true Do you have trouble paying for medicines?: I choose not to answer this question Do you have trouble getting transportation to medical appointments?: No Do you have trouble paying your heating and electricity bill?: No Do you have trouble taking care of your child, family member or friend?: No Do you have trouble with day-to-day activities such as bathing, preparing meals, shopping, managing finances, etc.?: No Are you currently unemployed and looking for a job?: No Are you interested in more education?: No Currently or been in a relationship where the following occur: No concerns reported THRIVE Score: 0 MADHU-7 AMB Questionnaire MADHU-7 Date MADHU - 7 assessed: 02/14/25 Source: Developed by Sarah Beth Pena Alex, Maykel Berumen and colleagues, with an educational yobany from [employer]. Physical exam (Primary Care) Vital Signs: Last Vital Signs Temp 98.1 F 03/29/25 08:51 Pulse 68 03/29/25 08:51 Resp 16 03/29/25 08:51 BP 111/64 03/29/25 08:51 Pulse Ox 100 03/29/25 08:51 Oxygen Delivery Method Room Air 03/29/25 08:51 BMI result Body Mass Index 23.5 Tobacco/Smoking Status: Tobacco use Status Tobacco use date assessed 03/29/25 03/29/25 08:53 Patient Tobacco Use Status Never used Tobacco 03/29/25 08:48 e-Cigarette/Vaping Use Never Used 03/29/25 08:48 Thrive Assessment: Date of Thrive Assessment Date Thrive assessed 11/02/24 03/29/25 08:48 Currently or been in a relationship where the following occur: No concerns reported Coding Level of Care Code Est Pt Level 3 (02857) Add On Problem Visit Only Diagnoses MADHU (generalized anxiety disorder) F41.1 Mild episode of recurrent major depressive disorder F33.0 Major depression episode severity: mild Polymenorrhea N92.0 Assessment & Plan Assessment & Plan (1) MADHU (generalized anxiety disorder): Code(s): F41.1 - Generalized anxiety disorder Category: Medical (2) MDD (major depressive disorder), recurrent episode: Code(s): F33.9 - Major depressive disorder, recurrent, unspecified Category: Medical Qualifiers: Major depression episode severity: mild Qualified Code(s): F33.0 - Major depressive disorder, recurrent, mild (3) Polymenorrhea: Code(s): N92.0 - Excessive and frequent menstruation with regular cycle Category: Medical Plan . Medications: New citalopram take with 40mg tab for TD 50mg/day 10 mg PO DAILY 30 tabs 1RF Changed From citalopram 40 mg PO DAILY 90 tabs 2RF To citalopram take with 10mg tab for TD 50mg/day 40 mg PO DAILY 90 tabs 2RF
[2025-03-29 08:51] VITALS: BP 111/64; PULSE 68; RESP 16; TEMP 36.7; O2SAT 100; BMI 23.5
== END 2025-03-29 09:05 | disposition home or self-care (01) ==
LOC: HO.HMCFM 08:44
PROVIDERS: PCP Nurse Practitioner Family; Visit Provider Nurse Practitioner Family
DX: F41.1 Generalized anxiety disorder (principal); F33.0 Major depressive disorder, recurrent, mild; N92.0 Excessive and frequent menstruation with regular cycle

== ENCOUNTER → 2025-03-29 08:43 | Outpatient (BNVA) | payer OTHER, SELFPAY | PROVIDERS: PCP Nurse Practitioner Family; Visit Provider Nurse Practitioner Family | DX: F41.1 Generalized anxiety disorder (principal); F33.0 Major depressive disorder, recurrent, mild; N92.0 Excessive and frequent menstruation with regular cycle | CPT/HCPCS: 99212 ==